=== PATIENT | male | born 1995 | race Hispanic/Latino ===

== ENCOUNTER 2017-12-16 06:28 | Emergency (ER) | payer MEDICAID ==
[2017-12-16 06:56] VITALS: TEMP 97.9
[2017-12-16] MEDS ORDERED: Sodium Chloride 0.9% 1,000 ML IV STA (07:34)
[2017-12-16] MEDS ORDERED: Lidocaine Hydrochloride 1% 10 ML ONE (07:49)
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
[2017-12-16 08:16] LABS: BASO # 0.1 K/uL (0.0-0.2); EOS # 0.2 K/uL (0.0-0.7); EOS % 2.7 % (0.0-4.0); HEMOGLOBIN 10.7 g/dL (12.0-18.0); LYMPH # 2.4 K/uL (1.0-4.3); MEAN CELL VOLUME 92.3 fl (80.0-94.0); MEAN CORPUSCULAR HEMOGLOBIN 31.5 pg (27.0-31.0); MEAN CORPUSCULAR HGB CONC 34.1 g/dL (33.0-37.0); MEAN PLATELET VOLUME 8.6 fl (7.2-11.7); MONO # 0.6 K/uL (0.0-0.8); MONO % 9.4 % (0.0-10.0); NEUT % 48.9 % (50.0-75.0); NRBC % 0.1 % (0.0-0.0); RBC 3.4 Mil/uL (4.40-5.90); RED CELL DISTRIBUTION WIDTH 14.1 % (11.5-14.5); WHITE BLOOD COUNT 6.2 K/uL (4.8-10.8)
[2017-12-16 08:28] LABS: ALB/GLOB RATIO 1.1 (1.0-2.1); ALBUMIN 3.8 g/dL (3.5-5.0); ALT/SGPT 89 U/L (21-72); AST/SGOT 54 U/L (17-59); BLOOD UREA NITROGEN 11 mg/dl (9-20); CALCIUM 8.9 mg/dL (8.4-10.2); GFR AFRICAN-AMERICAN > 60; GFR NON-AFRICAN AMERICAN > 60
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
[2017-12-16 11:27] LABS: BARBITURATES, UR NEGATIVE (NEGATIVE); OPIATES, UR NEGATIVE (NEGATIVE); PHENCYCLIDINE, UR NEGATIVE (NEGATIVE)
[2017-12-16 11:41] LABS: BENZODIAZEPINES, UR POSITIVE (NEGATIVE)
[2017-12-16 12:18] VITALS: BP 122/67; PULSE 76; RESP 18
[2017-12-16 15:01] VITALS: O2SAT 100
== END 2017-12-16 12:08 | disposition home or self-care (01) ==
LOC: H.ER 06:28
DX: S81.012A Laceration without foreign body, left knee, initial encounter (principal); S09.90XA Unspecified injury of head, initial encounter; X99.1XXA Assault by knife, initial encounter; Y92.89 Other specified places as the place of occurrence of the external cause
CPT/HCPCS: 12001; 70450; 80053; 80320; 80324; 80345; 80346; 80349; 80353; 80358; 80361; 83992; 85025; 99283; J7040

== ENCOUNTER 2017-12-16 22:17 | Emergency (ER) | payer MEDICAID ==
[2017-12-16 22:25] VITALS: BP 110/55; PULSE 112; RESP 18; TEMP 98.8; O2SAT 95
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
== END 2017-12-17 01:49 | disposition home or self-care (01) ==
LOC: H.ER 22:17
DX: F19.10 Other psychoactive substance abuse, uncomplicated (principal); F32.9 Major depressive disorder, single episode, unspecified; F41.9 Anxiety disorder, unspecified; R45.851 Suicidal ideations